=== PATIENT | female | born 1990 | race Caucasian/White ===

== ENCOUNTER → 2020-08-20 | Outpatient (CLI) | payer MEDICAID ==
[2018-12-11 15:00] VITALS: BP 99/62
[~2020-08-20] MED LIST: DOCU-153 PO; IBUP-1027 PO; OXYC1TAB15 PO
== END ==
LOC: LAB 13:06
PROVIDERS: ATTEND Obstetrics & Gynecology
DX: Z01.812 Encounter for preprocedural laboratory examination (principal); Z20.822 Contact with and (suspected) exposure to COVID-19
CPT/HCPCS: U0003

== ENCOUNTER 2020-08-24 09:06 | Inpatient (IN) | payer MEDICAID ==
[~2020-08-24] VITALS: Ht 165.1 cm; Wt 98.9 kg
[2020-08-24] VITALS (8 sets, daily range): BP systolic 104–130; BP diastolic 50–78
[2020-08-24] MEDS ORDERED: CITRIC ACID/SODIUM CITRATE 30 ML SOLUTION. PO ONE (10:15)
[2020-08-24 10:26] LABS: HEMATOCRIT 35.1 % (36.0-47.0); HEMOGLOBIN 12.2 g/dL (12.0-15.5); RED BLOOD COUNT 3.71 x10^6/uL (3.50-5.40); RED CELL DISTRIBUTION WIDTH 13.2 % (11.5-14.5); WHITE BLOOD COUNT 13.4 x10^3/uL (4.0-11.0)
[2020-08-24] MEDS: IV RINGERS,LACTATED 1000ML 1,000 ML IV PRN ×3 (10:46→20:20)
[2020-08-24 10:52] LABS: BILIRUBIN,URINE NEGATIVE (NEG); CLARITY,URINE CLEAR; COLOR,URINE YELLOW; NITRITE,URINE NEGATIVE (NEG); PH,URINE 7.5 (<5.0-8.0); PROTEIN,URINE NEGATIVE (NEG-TRACE); UROBILINOGEN,URINE 0.2 mg/dL (0.2 mg/dL)
[2020-08-24 11:07] LABS: BACTERIA,URINE 0 /HPF (0-FEW); RBC,URINE 0 /HPF (0-2); WBC,URINE OCC /HPF (0-4)
[2020-08-24] MEDS ORDERED: MORPHINE PF 10 MG/10 ML AMPUL. ONE (11:17)
[2020-08-24] MEDS ORDERED: ePHEDrine PF IN SALINE 50 MG/10 ML SYRINGE. IV ONE (11:17)
[2020-08-24] MEDS ORDERED: ONDANSETRON PF 4 MG/2 ML VIAL. ONE (11:17)
[2020-08-24] MEDS ORDERED: FAMOTIDINE 20 MG/2 ML VIAL ONE (11:17)
[2020-08-24] MEDS ORDERED: OXYTOCIN 10 UNIT/ML VIAL. ONE ×2 (11:17→12:24)
[2020-08-24] MEDS ORDERED: fentaNYL PF VIAL 100 MCG/2 ML VIAL ONE (11:17)
--- NOTE | 2020-08-24 11:57 | PDOC1 ---
OB - History Hx of Present Care: Limited Care Ultrasounds: Normal mid trimester US Obstetrical Complications: None Medical Complications: None Past Family/Social History * Past Medical, Surgical, Family and Obstetric Histories reviewed from chart. Rubella: Immune RPR/VDRL: Negative GBS Status: Unknown HBsAG: Negative OB - Chief Complaint & HPI Date of Admission: Date of Admission: Aug 24, 2020 at 09:06 Chief Complaint/History : 3 Para: 2 EGA: 39 Reason for admission: section Indication for : desires repeat Admission Nurse Assessment Rev: Yes OB - Admission Exam Physical Exam Vitals: VS - Last 72 Hours, by Label Date Time Temp Pulse Resp B/P (MAP) Pulse Ox O2 Delivery O2 Flow Rate FiO2 08/24/20 10:16 97.4 91 20 130/78 (95) 97.4 HEENT: Normal Heart: Regular Rate Lungs: Clear Abdomen: Gravid, Non tender, Soft Extremities: Edema Reflexes: Normal Cervical Dilatation: Fingertip Effacement: 25% Station: Ballotable Membranes: Intact Heart Rate: Normal Accelerations: Accelerations Present Decelerations: No decelerations Contractions on Admission: None Text A: 39 wks IUP Previous c/s P: Admit repeat c/s. GATITO WALLS Jr, MD Aug 24, 2020 11:57
--- NOTE | 2020-08-24 12:50 | PDOC4 ---
OB Operative Note Date: Aug 24, 2020 PRE OP DIAGNOSIS: Previoujs C- section POST OP DIAGNOSIS: Previous C- section OPERATION PERFORMED: R [facility] Surgeon Dr. Davis Anesthesia: Regional (Spinal) Blood Loss 500 ml Specimen placenta and OB Findings: Position (Vertex), Sex (Female), (8/9), Weight (6 Lb 9 oz.), Fluid (Clear), Nuchal Cord (x1) Complications none Additional Remarks pt. GATITO Lombardi Jr, MD Aug 24, 2020 12:50
[2020-08-24] MEDS ORDERED: OXYTOCIN 30 UNIT/500 ML PREMIX 500 ML IV PRN (13:00)
[2020-08-24] MEDS ORDERED: ONDANSETRON PF 4 MG/2 ML VIAL. IV PRN (13:00)
[2020-08-24] MEDS ORDERED: diphenhydrAMINE ORAL ELIXIR 12.5 MG/5 ML ML PO PRN (13:00)
[2020-08-24] MEDS ORDERED: SIMETHICONE 80 MG TAB.CHEW PO PRN (13:00)
[2020-08-24] MEDS ORDERED: MAG HYDROX/ALUMINUM HYD/SIMETH 30 ML ORAL.SUSP PO PRN (13:00)
[2020-08-24] MEDS ORDERED: 0.9 % SODIUM CHLORIDE 10 ML DISP.SYRIN. IV PRN (13:00)
[2020-08-24] MEDS ORDERED: ZOLPIDEM 5 MG TABLET. PO PRN (13:00)
--- NOTE | 2020-08-24 13:22 | OP ---
DATE OF SURGERY: 08/24/2020 PREOPERATIVE DIAGNOSES: 1. A 39 weeks' intrauterine . 2. Previous section x 2. POSTOPERATIVE DIAGNOSES: 1. A 39 weeks' intrauterine . 2. Previous section x 2. PROCEDURE: Repeat low transverse section. SURGEON: Gatito Davis MD ANESTHESIA: Spinal. ESTIMATED BLOOD LOSS: 500 mL. COMPLICATIONS: None. FINDINGS: Viable female infant, Apgars 8 and 9, weight 6 pounds 9 ounces. Three-vessel cord placenta delivered manually intact. Nuchal cord x 1. SUMMARY: This is a 30-year-old 3, para 2 at 39 weeks, presented for repeat section. She was counseled on risks, benefits and expectations and voiced a clear understanding to proceed. DESCRIPTION OF PROCEDURE: The patient was taken to surgery suite and placed in dorsal supine position. She was prepped with ChloraPrep and draped in sterile fashion. After adequate anesthesia, Pfannenstiel skin incision was made with scalpel down to and through the fascia. The fascia was extended laterally using curved Fletcher scissors. Superior edge of fascia was grasped with 2 Miguel Ángel clamps and dissected free of the abdominal rectus muscles using blunt dissection along with Bovie cautery. The same process took place inferiorly. The abdominal rectus muscle dissected bluntly at the midline. Peritoneum was grasped with 2 hemostats and entered sharply with Metzenbaum scissors. This incision was extended superiorly as well as inferiorly. The Kojo ring retractor was placed. Low transverse hysterotomy incision was made with scalpel down to the amniotic sac. Hysterotomy incision was extended laterally and superiorly digitally. Amniotomy was performed with Allis clamp, which elicited moderate amount of clear fluid. With the aid of fundal pressure, the 's head was delivered in a smooth atraumatic manner. Nuchal cord x 1 was visualized and reduced. With additional fundal pressure, the anterior shoulder was delivered followed by posterior shoulder. Rest of female infant was delivered. The was suctioned with bulb syringe orally and nasally, umbilical cord was clamped twice and cut. Viable female infant was handed to waiting nursing staff. Umbilical cord blood was then obtained. Three-vessel cord placenta was delivered manually intact. The uterus was then exteriorized and cleared of clot and debris with moist lap. Hysterotomy incision was reapproximated using 1 Vicryl suture in running locked fashion. The uterus palpated firm. Fallopian tubes and ovaries appeared normal bilaterally. Posterior cul-de-sac was cleared of clot and debris with moist lap. The uterus was then returned to the abdomen. The pericolic gutters were cleared of clot and debris with moist lap. Hysterotomy incision was reviewed and was hemostatic. The Kojo ring retractor was removed. The peritoneum was reapproximated using 1 Vicryl suture in running fashion. Abdominal rectus muscles were reapproximated using 1 Vicryl suture in running fashion. The fascia was reapproximated using Stratafix in running fashion. Skin was reapproximated using 4-0 Vicryl suture in subcuticular manner. The patient tolerated the procedure well and was taken to recovery room in stable condition. Sponge and needle count correct x 3. GATITO DAVIS MD DR: AARON/harshal JOB#: [id number] / [id number]
[2020-08-24] MEDS: KETOROLAC 30 MG/ML VIAL. IV PRN ×2 (14:32→20:20)
[2020-08-24] MEDS ORDERED: FERROUS SULFATE 325 MG TABLET. PO SCH (17:00)
[2020-08-25] VITALS: BP 107/50
[2020-08-25 04:00] VITALS: BP 112/64
[2020-08-25 07:55] LABS: BASO % 0 % (0-3); EOS # 0.3 x10^3/uL (0.0-0.7); EOS % 2 % (0-3); HEMATOCRIT 31.4 % (36.0-47.0); HEMOGLOBIN 10.6 g/dL (12.0-15.5); LYMPH # 2.2 x10^3/uL (1.0-4.8); LYMPH % 18 % (24-48); MEAN CORPUSCULAR HEMOGLOBIN 32 pg (25-35); MEAN CORPUSCULAR HGB CONC 34 g/dL (31-37); MEAN CORPUSCULAR VOLUME 96 fL (79-100); MONO # 0.8 x10^3/uL (0.0-1.1); MONO % 7 % (0-9); NEUT % 73 % (31-73); PLATELET COUNT 235 x10^3/uL (140-400); RED BLOOD COUNT 3.29 x10^6/uL (3.50-5.40); RED CELL DISTRIBUTION WIDTH 13.3 % (11.5-14.5); WHITE BLOOD COUNT 12.3 x10^3/uL (4.0-11.0)
[2020-08-25] MEDS: oxyCODONE/APAP 5/325 1 TAB TABLET PO PRN ×3 (08:15→19:43)
[2020-08-25] MEDS: DOCUSATE SODIUM 100 MG CAPSULE. PO PRN (08:15)
[2020-08-25 08:18] VITALS: BP 98/56
--- NOTE | 2020-08-25 08:26 | PDOC ---
OB Progress Note Date of Service 08/25/20 Time of Evaluation 0825 Notes Pt. feeling well. Pain controlled. No complaints. Lab Laboratory Tests Test 08/24/20 10:00 08/24/20 10:05 08/25/20 07:10 White Blood Count 13.4 x10^3/uL (4.0-11.0) 12.3 x10^3/uL (4.0-11.0) Red Blood Count 3.71 x10^6/uL (3.50-5.40) 3.29 x10^6/uL (3.50-5.40) Hemoglobin 12.2 g/dL (12.0-15.5) 10.6 g/dL (12.0-15.5) Hematocrit 35.1 % (36.0-47.0) 31.4 % (36.0-47.0) Mean Corpuscular Volume 95 fL (79-100) 96 fL (79-100) Mean Corpuscular Hemoglobin 33 pg (25-35) 32 pg (25-35) Mean Corpuscular Hemoglobin Concent 35 g/dL (31-37) 34 g/dL (31-37) Red Cell Distribution Width 13.2 % (11.5-14.5) 13.3 % (11.5-14.5) Platelet Count 264 x10^3/uL (140-400) 235 x10^3/uL (140-400) Treponema pallidum Antibody Nonreactive (Nonreactive) Urine Collection Type Unknown Urine Color Yellow Urine Clarity Clear Urine pH 7.5 (<5.0-8.0) Urine Specific [place] 1.015 (1.000-1.030) Urine Protein Negative mg/dL (NEG-TRACE) Urine Glucose (UA) Negative mg/dL (NEG) Urine Ketones (Stick) Negative mg/dL (NEG) Urine Blood Negative (NEG) Urine Nitrite Negative (NEG) Urine Bilirubin Negative (NEG) Urine Urobilinogen Dipstick 0.2 mg/dL (0.2 mg/dL) Urine Leukocyte Esterase Moderate (NEG) Urine RBC 0 /HPF (0-2) Urine WBC Occ /HPF (0-4) Urine Squamous Epithelial Cells Mod /LPF Urine Bacteria 0 /HPF (0-FEW) Urine Mucus Slight /LPF Neutrophils (%) (Auto) 73 % (31-73) Lymphocytes (%) (Auto) 18 % (24-48) Monocytes (%) (Auto) 7 % (0-9) Eosinophils (%) (Auto) 2 % (0-3) Basophils (%) (Auto) 0 % (0-3) Neutrophils # (Auto) 9.0 x10^3/uL (1.8-7.7) Lymphocytes # (Auto) 2.2 x10^3/uL (1.0-4.8) Monocytes # (Auto) 0.8 x10^3/uL (0.0-1.1) Eosinophils # (Auto) 0.3 x10^3/uL (0.0-0.7) Basophils # (Auto) 0.0 x10^3/uL (0.0-0.2) Laboratory Tests Test 08/24/20 10:00 08/24/20 10:05 08/25/20 07:10 White Blood Count 13.4 x10^3/uL (4.0-11.0) 12.3 x10^3/uL (4.0-11.0) Red Blood Count 3.71 x10^6/uL (3.50-5.40) 3.29 x10^6/uL (3.50-5.40) Hemoglobin 12.2 g/dL (12.0-15.5) 10.6 g/dL (12.0-15.5) Hematocrit 35.1 % (36.0-47.0) 31.4 % (36.0-47.0) Mean Corpuscular Volume 95 fL (79-100) 96 fL (79-100) Mean Corpuscular Hemoglobin 33 pg (25-35) 32 pg (25-35) Mean Corpuscular Hemoglobin Concent 35 g/dL (31-37) 34 g/dL (31-37) Red Cell Distribution Width 13.2 % (11.5-14.5) 13.3 % (11.5-14.5) Platelet Count 264 x10^3/uL (140-400) 235 x10^3/uL (140-400) Treponema pallidum Antibody Nonreactive (Nonreactive) Urine Collection Type Unknown Urine Color Yellow Urine Clarity Clear Urine pH 7.5 (<5.0-8.0) Urine Specific [place] 1.015 (1.000-1.030) Urine Protein Negative mg/dL (NEG-TRACE) Urine Glucose (UA) Negative mg/dL (NEG) Urine Ketones (Stick) Negative mg/dL (NEG) Urine Blood Negative (NEG) Urine Nitrite Negative (NEG) Urine Bilirubin Negative (NEG) Urine Urobilinogen Dipstick 0.2 mg/dL (0.2 mg/dL) Urine Leukocyte Esterase Moderate (NEG) Urine RBC 0 /HPF (0-2) Urine WBC Occ /HPF (0-4) Urine Squamous Epithelial Cells Mod /LPF Urine Bacteria 0 /HPF (0-FEW) Urine Mucus Slight /LPF Neutrophils (%) (Auto) 73 % (31-73) Lymphocytes (%) (Auto) 18 % (24-48) Monocytes (%) (Auto) 7 % (0-9) Eosinophils (%) (Auto) 2 % (0-3) Basophils (%) (Auto) 0 % (0-3) Neutrophils # (Auto) 9.0 x10^3/uL (1.8-7.7) Lymphocytes # (Auto) 2.2 x10^3/uL (1.0-4.8) Monocytes # (Auto) 0.8 x10^3/uL (0.0-1.1) Eosinophils # (Auto) 0.3 x10^3/uL (0.0-0.7) Basophils # (Auto) 0.0 x10^3/uL (0.0-0.2) Medications Current Medications Ringer's Solution 1,000 ml @ 1,000 mls/hr Q1H PRN IV PER PROTOCOL Last administered on 08/24/20at 20:20; Start 08/24/20 at 10:15 Cefazolin Sodium/ Dextrose 50 ml @ 100 mls/hr 1X ONCE IV Last administered on 08/24/20at 11:27; Start 08/24/20 at 10:15; Stop 08/24/20 at 10:44; Status DC Citric Acid/ Sodium Citrate (Bicitra) 30 ml 1X ONCE PO Last administered on 08/24/20at 11:27; Start 08/24/20 at 10:15; Stop 08/24/20 at 10:16; Status DC Famotidine (Pepcid Vial) 20 mg STK-MED ONCE .ROUTE ; Start 08/24/20 at 11:17; Stop 08/24/20 at 11:17; Status DC Ondansetron HCl (Zofran) 4 mg STK-MED ONCE .ROUTE ; Start 08/24/20 at 11:17; Stop 08/24/20 at 11:17; Status DC Oxytocin (Pitocin) 10 unit STK-MED ONCE .ROUTE ; Start 08/24/20 at 11:17; Stop 08/24/20 at 11:17; Status DC Ephedrine Sulfate (ePHEDrine PF IN SALINE SYRINGE) 50 mg STK-MED ONCE IV ; Start 08/24/20 at 11:17; Stop 08/24/20 at 11:17; Status DC Morphine Sulfate (Morphine Preservative Free) 10 mg STK-MED ONCE .ROUTE ; Start 08/24/20 at 11:17; Stop 08/24/20 at 11:18; Status DC Fentanyl Citrate (Fentanyl 2ml Vial) 100 mcg STK-MED ONCE .ROUTE ; Start 08/24/20 at 11:17; Stop 08/24/20 at 11:18; Status DC Ephedrine Sulfate (Akovaz) 50 mg STK-MED ONCE .ROUTE ; Start 08/24/20 at 11:18; Stop 08/24/20 at 11:18; Status DC Oxytocin (Pitocin) 10 unit STK-MED ONCE .ROUTE ; Start 08/24/20 at 12:24; Stop 08/24/20 at 12:24; Status DC Sodium Chloride (Normal Saline Flush) 3 ml QSHIFT PRN IV AFTER MEDS AND BLOOD DRAWS; Start 08/24/20 at 13:00 Oxytocin 500 ml @ 125 mls/hr CONT PRN IV EXCESSIVE POST- BLEEDING; Start 08/24/20 at 13:00; Stop 08/24/20 at 20:59; Status DC Ibuprofen (Motrin) 800 mg PRN Q8HRS PRN PO INFLAMMATION; Start 08/24/20 at 13:00 Ondansetron HCl (Zofran) 4 mg PRN Q6HRS PRN IV NAUSEA/VOMITING; Start 08/24/20 at 13:00 Docusate Sodium (Colace) 100 mg PRN BID PRN PO CONSTIPATION Last administered on 08/25/20at 08:15; Start 08/24/20 at 13:00 Al Hydroxide/Mg Hydroxide (Mylanta Plus Xs) 30 ml PRN Q4HRS PRN PO HEARTBURN / GAS; Start 08/24/20 at 13:00 Simethicone (Gas-X) 80 mg PRN AFTMEALHC PRN PO GAS / BLOATING; Start 08/24/20 at 13:00 Diphenhydramine HCl (Benadryl Oral Elixir) 12.5 mg PRN Q6HRS PRN PO ITCHING; Start 08/24/20 at 13:00 Ferrous Sulfate (Feosol) 325 mg BIDWMEALS PO ; Start 08/24/20 at 17:00 Zolpidem Tartrate (Ambien) 5 mg PRN QHS PRN PO INSOMNIA, MAY REPEAT X1; Start 08/24/20 at 13:00 Oxycodone/ Acetaminophen (Percocet 5/325) 2 tab PRN Q4HRS PRN PO MODERATE PAIN, SEVERE PAIN Last administered on 08/25/20at 08:15; Start 08/24/20 at 13:00 Ketorolac Tromethamine (Toradol 30mg Vial) 30 mg PRN Q6HRS PRN IV INFLAMMATION/PAIN Last administered on 08/24/20at 20:20; Start 08/24/20 at 13:00; Stop 08/29/20 at 12:59 Multivitamins (Thera M Plus) 1 tab DAILY PO ; Start 08/25/20 at 09:00 Active Scripts Active Reported No Known Medications Prior To Admisstion (Info) Each 1 Each DAILY Exam ABd: soft, mild tenderness, fundus firm Incision site: clean, dry and intact Assessment POD#1 s/p repeat c/s Plan of Care: Continue current Tx, Mgmt GATITO WALLS Jr, MD Aug 25, 2020 08:26
[2020-08-25] MEDS ORDERED: MULTIVITAMIN with MINERAL TABLET. PO SCH (09:00)
[2020-08-25] MEDS: IBUPROFEN 400 MG TABLET. PO PRN ×2 (11:11→19:43)
[2020-08-25 13:46] VITALS: BP 112/55
[2020-08-25 20:22] VITALS: BP 116/57
[2020-08-26 05:31] VITALS: BP 130/81
--- NOTE | 2020-08-26 08:20 | PDOC3 ---
OB DISCHARGE SUMMARY DATE OF ADMISSION: 08/24/20 DATE OF DISCHARGE: 08/26/20 REASON FOR ADMISSION: section INTRAPARTUM PROCEDURES: : Low Cerv Trans DISCHARGE DIAGNOSIS: Term Delivered DISCHARGE INFORMATION: Activity (ad elias), Diet (regular), Instructions (pelvic rest x 6 wks, no driving x 2 wks, no lifitng > 20 lbs. x 4 wks) HOSPITAL COURSE Term gestation delivered repeat section without complications. GATITO WALLS Jr, MD Aug 26, 2020 08:20
[2020-08-26] MEDS ORDERED: IBUP-1027 PO (08:25)
[2020-08-26] MEDS: DOCUSATE SODIUM 100 MG CAPSULE. PO PRN (08:25)
[2020-08-26] MEDS ORDERED: DOCU-153 PO (08:25)
[2020-08-26] MEDS: oxyCODONE/APAP 5/325 1 TAB TABLET PO PRN (08:25)
[2020-08-26] MEDS ORDERED: OXYC1TAB15 PO (08:25)
[2020-08-26] MEDS: IBUPROFEN 400 MG TABLET. PO PRN (08:25)
--- NOTE | 2020-08-26 08:26 | DISCH ---
DISCHARGE INSTRUCTIONS Condition on Discharge Condition on Discharge: Stable Activity After Discharge Activity Instructions for Disc: Activity as tolerated Bathing Instructions: Shower-keep dressing dry, No Tub Bath until see Lifting Instructions after Dis: No heavy lifting Driving Instructions after Dis: No driving for 2 weeks Diet after Discharge Diet after Discharge: Regular Contacting the after DC Call your doctor for: Concerns you may have Follow-Up Follow up with: Dr. Davis in 3 wks. GATITO DAVIS Jr, MD Aug 26, 2020 08:26
[2020-08-26] MEDS ORDERED: DIPH,PERTUSS(ACELL),TET VAC/PF 0.5 ML SYRINGE. VAX IM ONE (08:30)
[2020-08-26 10:20] VITALS: BP 126/61
--- NOTE | 2020-08-26 10:35 | NUR ---
Patient walked down with this nurse and baby. No questions verbalized over discharge instructions. Patient got into vehicle with baby and FOB.
== END 2020-08-26 10:35 | disposition home or self-care (01) | DRG 788 ==
LOC: 3 SO LND 09:06 → 3 NORTH 16:25
PROVIDERS: ADMIT Obstetrics & Gynecology; ATTEND Obstetrics & Gynecology
PROC: 10D00Z1 Extraction of Products of Conception, Low, Open Approach (ICD-10-PCS; principal; 2020-08-24)
PROC: 3E0234Z Introduction of Serum, Toxoid and Vaccine into Muscle, Percutaneous Approach (ICD-10-PCS; 2020-08-26)
DX: O34.211 Maternal care for low transverse scar from previous cesarean delivery (principal); O69.81X0 Labor and delivery complicated by cord around neck, without compression, not applicable or unspecified; Z3A.39 39 weeks gestation of pregnancy; Z37.0 Single live birth; Z23 Encounter for immunization
CPT/HCPCS: 36415; 81001; 85025; 85027; 86592; 86850; 86900; 86901; 87086; 90471; 90715; C1755; J0690; J1885; J2274; J2405; J2590; J3010; J3490; J7120; G0378